=== PATIENT | male | born 1980 | race Caucasian/White ===

== ENCOUNTER 2016-09-06 14:54 | Emergency (ER) | payer MEDICAID ==
[2016-09-06 15:38] LABS: % BASOPHILS 0.7 % (0.0-2.0); % EOSINOPHILS 0.4 % (0.0-5.0); % MONOCYTES 3.5 % (2.0-10.0); % NEUTROPHILS 76.4 % (40.0-80.0); HEMATOCRIT 43.2 % (39.0-49.0); HEMOGLOBIN 14.7 gm/dL (13.2-17.3); MEAN CELL VOLUME 91.3 fl (80-99); MEAN PLATELET VOLUME 7.2 fl; NEUTROPHILE ABSOLUTE 6.9 Th/cmm (1.8-8.0); PLATELET COUNT 229 Th/cmm (150-400); RED BLOOD COUNT 4.73 Mil/cmm (4.30-5.70); RED CELL DISTRIBUTION WIDTH 15.1 % (11.5-20.0)
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
[2016-09-06 15:45] LABS: CHLORIDE 105 mEq/L (98-107); POTASSIUM SERUM 3.7 mEq/L (3.5-5.1); SODIUM SERUM 137 mEq/L (136-145)
[2016-09-06 15:51] LABS: INR 0.97 (0.5-1.4); PROTHROMBIN TIME (TEST) 10.1 SECONDS (9.5-11.5)
[2016-09-06 16:32] LABS: CHOLESTEROL 191 mg/dL (<200); TRIGLYCERIDES 130 mg/dL (<150)
[2016-09-06 16:36] LABS: ANION GAP 7.7 (7.0-16.0)
[2016-09-06 16:37] LABS: ALB/GLOB RATIO 1.4 (1.0-1.8); ALKALINE PHOSPHATASE 69 U/L (34-104); BILIRUBIN,TOTAL 0.4 mg/dL (0.3-1.0); BUN - UREA NITROGEN 10 mg/dL (7-25); BUN/CREATININE RATIO 11.1; CALCIUM SERUM 9.1 mg/dL (8.6-10.3); CREATININE - SERUM 0.9 mg/dL (0.7-1.3); GLUCOSE 139 mg/dL (70-105); SGOT 54 U/L (13-39); SGPT/ALT 53 U/L (7-52)
[2016-09-06] MEDS ORDERED: Sodium Chloride 0.9% 1,000 ML IV ONE (16:39)
[2016-09-06 17:08] LABS: AMPHETAMINE URINE NEGATIVE (NEGATIVE); BARBITURATES URINE NEGATIVE (NEGATIVE); METHADONE URINE NEGATIVE (NEGATIVE)
[2016-09-06 17:16] LABS: URINE BILIRUBIN NEGATIVE (NEGATIVE); URINE BLOOD NEGATIVE (NEGATIVE); URINE COLOR PALE YELLOW; URINE GLUCOSE (UA) NEGATIVE (NEGATIVE); URINE KETONE NEGATIVE (NEGATIVE); URINE PH 7.5; URINE PROTEIN NEGATIVE (NEGATIVE); URINE UROBILINOGEN 0.2 E.U./dL (0.2 - 1.0)
[2016-09-06 17:17] LABS: URINE BACTERIA NONE SEEN /hpf (NONE SEEN); URINE EPITHELIAL CELLS NONE SEEN /lpf (FEW); URINE RBC NONE SEEN /hpf (0-5); URINE WBC NONE SEEN /hpf (0-5)
--- NOTE | 2016-09-07 09:40 | Diagnostic Imaging Report ---
Right hand 3 views Indication: Trauma Comparison: none Findings: A tiny ossicle is seen adjacent to the first proximal and first phalanx which may have been due to old trauma. There is 4 mm ossicle seen along the dorsal aspect of the proximal metacarpal region on the lateral views. Findings may be due to previous, chronic trauma. Otherwise no evidence of acute fracture. No significant focal soft tissue swelling. Impression: 4 mm ossicle along the dorsal at the proximal base of the metacarpal region seen on the lateral views. Findings may have been related to previous/old trauma. Alternatively, findings may represent a carpal boss. Otherwise no evidence of an acute fracture. Please clinically with clinical findings. No focal soft tissue swelling. In the setting of trauma, if clinical symptoms persist and there is continued concern for an occult fracture, follow up exams in 5-7 days is suggested.
== END 2016-09-06 18:41 | disposition home or self-care (01) ==
LOC: ER 14:54
DX: T42.4X1A Poisoning by benzodiazepines, accidental (unintentional), initial encounter (principal); F10.10 Alcohol abuse, uncomplicated; F31.9 Bipolar disorder, unspecified; F41.8 Other specified anxiety disorders; Z88.8 Allergy status to other drugs, medicaments and biological substances; Y92.89 Other specified places as the place of occurrence of the external cause
CPT/HCPCS: 36415-UA; 73130-TC-RT; 80053-TC; 80061-TC; 80307; 80320-TC; 81001-TC; 84443-TC; 84484-TC; 85025-TC; 85610-TC; 85730-TC; 86592-TC; J7030

== ENCOUNTER 2016-09-11 14:51 | Emergency (ER) | payer MEDICAID ==
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
== END 2016-09-11 15:43 | disposition home or self-care (01) ==
LOC: ER 14:51
DX: F10.239 Alcohol dependence with withdrawal, unspecified (principal); Z88.8 Allergy status to other drugs, medicaments and biological substances
CPT/HCPCS: Z7502

== ENCOUNTER 2017-09-11 16:58 | Emergency (ER) | payer MEDICAID ==
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
--- NOTE | 2017-09-12 08:01 | Diagnostic Imaging Report ---
EXAM: Left shoulder joint HISTORY: Pain COMPARISON: None FINDINGS: Multiple views of left shoulder joint reviewed. The study demonstrates no evidence of fracture or dislocation. There is no evidence of subluxation. The acromion clinically joint is intact. The head of right humerus is well within the glenoid fossa. IMPRESSION: Normal examination of the left shoulder joint.
== END 2017-09-11 19:50 | disposition home or self-care (01) ==
LOC: ER 16:58
DX: S40.012A Contusion of left shoulder, initial encounter (principal); Z88.8 Allergy status to other drugs, medicaments and biological substances; V86.46XA Person injured while boarding or alighting from a dirt bike or motor/cross bike, initial encounter; Y93.89 Activity, other specified; Y92.89 Other specified places as the place of occurrence of the external cause; Y99.8 Other external cause status
CPT/HCPCS: 73030-TC-LT; Z7502